=== PATIENT | male | born 1945 | race Caucasian/White ===

== ENCOUNTER 2018-01-08 09:46 | Emergency (ER) | payer MEDICAID ==
[~2018-01-08] VITALS: Ht 167.6 cm; Wt 63.6 kg
[2018-01-08 12:03] VITALS: BP 106/61
[2018-01-08] MEDS ORDERED: METHOCARBAMOL 500 MG TABLET PO ONE (12:30)
[2018-01-08] MEDS ORDERED: KETOROLAC TROMETHAMINE 60 MG/2 ML VIAL IM ONE (12:30)
== END 2018-01-08 12:56 | disposition home or self-care (01) ==
LOC: EMS 09:47
DX: S46.912A Strain of unspecified muscle, fascia and tendon at shoulder and upper arm level, left arm, initial encounter (principal); X58.XXXA Exposure to other specified factors, initial encounter; Y93.89 Activity, other specified; Y92.89 Other specified places as the place of occurrence of the external cause; Y99.8 Other external cause status
CPT/HCPCS: 73030; 96372; 99284; J1885